=== PATIENT | male | born 1975 | race Caucasian/White ===

== ENCOUNTER 2018-11-26 11:43 | Emergency (ER) | payer OTHER ==
[~2018-11-26] VITALS: Ht 172.7 cm; Wt 93.0 kg
--- NOTE | 2018-11-26 12:13 | PHYS DOC ---
Past History Past Medical History: COPD Past Surgical History: Other Smoking: Greater than 1 pack/day Additional Smoking Information: 10/25 PPD Alcohol Use: Occasionally Drug Use: None Adult General Chief Complaint Chief Complaint: LOSS OF CONSCIOUSNESS [facility] HPI 43-year-old male presents with syncopal episode and fall. The patient states that around noon yesterday he was having a coughing fit and then passed out in the shower. He believes that he landed on the metal shower door track on his right upper arm and right ribs. He woke up on the floor and had bleeding above his right eye describes some pain on the right ribs and right upper arm. He is unsure how long he was unconscious. There was no other witness. Patient does have COPD at baseline. He is not on oxygen. He had one episode similar to this for 5 years ago or he had a coughing fit a syncopal episode. He was placed on breathing treatments for COPD at that time. He is not currently on any COPD medications. He denies fever or chills. He denies any other symptoms of illness. Review of Systems Review of Systems Constitutional: Denies fever or chills [] Eyes: Denies change in visual acuity, redness, or eye pain [] HENT: Denies nasal congestion or sore throat [] Respiratory: Denies cough or shortness of breath [] Cardiovascular: No additional information not addressed in HPI [] GI: Denies abdominal pain, nausea, vomiting, bloody stools or diarrhea [] : Denies dysuria or hematuria [] Musculoskeletal: Right upper arm abrasion and right posterior rib pain[] Integument: Denies rash or skin lesions [] Neurologic: Syncope. Denies headache, focal weakness or sensory changes [] Endocrine: Denies polyuria or polydipsia [] All other systems were reviewed and found to be within normal limits, except as documented in this note. Allergies Allergies Allergies Coded Allergies Type Severity Reaction Last Updated Verified No Known Drug Allergies 04/16/14 No Physical Exam Physical Exam Constitutional: Well developed, well nourished, no acute distress, non-toxic appearance. [] HENT: Normocephalic, atraumatic, bilateral external ears normal, oropharynx moist, no oral exudates, nose normal. [] Eyes: PERRLA, EOMI, conjunctiva normal, no discharge. 1 cm last liberation of the right eyebrow, well approximated, no bleeding.[] Neck: Normal range of motion, no tenderness, supple, no stridor. [] Cardiovascular:Heart rate regular rhythm, no murmur [] Lungs & Thorax: Bilateral breath sounds decreased but clear to auscultation [] Abdomen: Bowel sounds normal, soft, no tenderness, no masses, no pulsatile masses. [] Skin: Ecchymosis of the right upper and right posterior thorax. [] Back: Mild right-sided tenderness, no CVA tenderness. [] Extremities: No tenderness, no cyanosis, no clubbing, ROM intact, no edema. [] Neurologic: Alert and oriented X 3, normal motor function, normal sensory function, no focal deficits noted. [] Psychologic: Affect normal, judgement normal, mood normal. [] Current Patient Data Vital Signs Vital Signs Date Time Temp Pulse Resp B/P (MAP) Pulse Ox O2 Delivery O2 Flow Rate FiO2 11/26/18 11:51 98.3 88 20 100 Room Air EKG EKG Sinus rhythm, rate 60, left axis deviation, no ST elevations or depressions, widened T waves in V2, V3[] Radiology/Procedures Radiology/Procedures [] Impressions: PQRS Compliance statement: One or more of the following individualized dose reduction techniques were utilized for this examination: 1. Automated exposure control. 2. Adjustment of the mA and/or kV according to patient size. 3. Use of iterative reconstruction technique. Indication:Syncope YESTERDAY, BRUISING OVER RIGHT EYE TECHNIQUE: CT head without IV contrast COMPARISON: 09/11/2015 FINDINGS: No pathologic extra-axial or intra-axial fluid collection. The ventricles and basal cisterns are within normal limits. No acute intracranial bleed. No focal loss of chow-white differentiation. Visualized orbits within normal limits. No large scalp hematoma. No acute calvarial fracture. The paranasal sinuses and mastoid air cells are clear. IMPRESSION: No acute intracranial process. Electronically signed by: Lavell Chris DO (11/26/2018 12:24 PM) [id number] DICTATED AND SIGNED BY: LAVELL CHRIS DO DATE: 11/26/18 1222 CC: NISREEN DUBON DO; JOSE PASTOR PAC Indication: Right hip pain. Syncope yesterday TECHNIQUE: PA chest and multiple views of the right ribs COMPARISON: None FINDINGS: Heart is normal in size. Lungs are clear. No pneumothorax or pleural effusion. No acute rib fractures. IMPRESSION: No acute findings. Electronically signed by: Lavell Chris DO (11/26/2018 12:27 PM) [id number] DICTATED AND SIGNED BY: LAVELL CHRIS DO DATE: 11/26/18 1225 CC: NISREEN DUBON DO; JOSE PASTOR PAC Course & Med Decision Making Course & Med Decision Making Pertinent Labs and Imaging studies reviewed. (See chart for details) Patient's labs are unremarkable. His EKG unusual T waves, but is otherwise unremarkable. His troponin is negative. His head CT is unremarkable. I do not see an abnormality at that would lead to his syncope. It's highly possible this is vasovagal syncope due to the coughing. His rib x-rays negative for fractures. He just has contusions. He is stable for discharge at this time. [] Dragon Disclaimer Dragon Disclaimer This electronic medical record was generated, in whole or in part, using a voice recognition dictation system. Departure Departure: Impression: Primary Impression: Fall in (into) shower or empty bathtub, initial encounter Additional Impressions: Vasovagal syncope Contusion of rib on left side Disposition: 01 HOME, SELF-CARE Condition: STABLE Referrals: JOSE PASTOR PAC (PCP) Patient Instructions: Rib Contusion, Syncope, [id number] Problem Qualifiers Additional Impressions: Contusion of rib on left side Encounter type: initial encounter Qualified Codes: S20.212A - Contusion of left front wall of thorax, initial encounter NISREEN DUBON DO Nov 26, 2018 12:13
[2018-11-26 12:19] LABS: BASO # 0.1 x10^3/uL (0.0-0.2); BASO % 1 % (0-3); EOS # 0.1 x10^3/uL (0.0-0.7); EOS % 1 % (0-3); HEMOGLOBIN 18.9 g/dL (13.0-17.5); LYMPH # 2.1 x10^3/uL (1.0-4.8); LYMPH % 21 % (24-48); MEAN CORPUSCULAR HEMOGLOBIN 31 pg (25-35); MEAN CORPUSCULAR HGB CONC 34 g/dL (31-37); MEAN CORPUSCULAR VOLUME 90 fL (79-100); MONO # 0.6 x10^3/uL (0.0-1.1); MONO % 6 % (0-9); NEUT # 7.2 x10^3uL (1.8-7.7); NEUT % 71 % (31-73); PLATELET COUNT 214 x10^3/uL (140-400); RED BLOOD COUNT 6.14 x10^6/uL (4.30-5.70); RED CELL DISTRIBUTION WIDTH 13.6 % (11.5-14.5); WHITE BLOOD COUNT 10.1 x10^3/uL (4.0-11.0)
--- NOTE | 2018-11-26 12:28 | RAD ---
PQRS Compliance statement: One or more of the following individualized dose reduction techniques were utilized for this examination: 1. Automated exposure control. 2. Adjustment of the mA and/or kV according to patient size. 3. Use of iterative reconstruction technique. Indication:Syncope YESTERDAY, BRUISING OVER RIGHT EYE TECHNIQUE: CT head without IV contrast COMPARISON: 09/11/2015 FINDINGS: No pathologic extra-axial or intra-axial fluid collection. The ventricles and basal cisterns are within normal limits. No acute intracranial bleed. No focal loss of chow-white differentiation. Visualized orbits within normal limits. No large scalp hematoma. No acute calvarial fracture. The paranasal sinuses and mastoid air cells are clear. IMPRESSION: No acute intracranial process. Electronically signed by: Lavell Chris DO (11/26/2018 12:24 PM) [id number]
--- NOTE | 2018-11-26 12:31 | RAD ---
Indication: Right hip pain. Syncope yesterday TECHNIQUE: PA chest and multiple views of the right ribs COMPARISON: None FINDINGS: Heart is normal in size. Lungs are clear. No pneumothorax or pleural effusion. No acute rib fractures. IMPRESSION: No acute findings. Electronically signed by: Lavell Chris DO (11/26/2018 12:27 PM) [id number]
[2018-11-26 12:32] LABS: ALBUMIN 3.8 g/dL (3.4-5.0); CALCIUM 8.9 mg/dL (8.5-10.1); CREATININE 1.4 mg/dL (0.7-1.3); GFR 55.8; POTASSIUM 3.6 mmol/L (3.5-5.1); TOTAL PROTEIN 7.5 g/dL (6.4-8.2)
[2018-11-26 13:01] LABS: AMPHETAMINE/METHAMPHETAMINE NEG (NEG); BARBITURATES NEG (NEG); BENZODIAZEPINES NEG (NEG); CANNABINOIDS NEG (NEG); COCAINE NEG (NEG); METHADONE NEG (NEG); OPIATES NEG (NEG); PHENCYCLIDINE NEG (NEG)
[2018-11-26 13:07] LABS: BILIRUBIN,URINE NEG (NEG); CLARITY,URINE CLEAR; COLOR,URINE AMBER; GLUCOSE,URINE NEG (NEG)
[2018-11-26 13:08] LABS: BACTERIA,URINE 0 /HPF (0-FEW); NITRITE,URINE NEG (NEG); RBC,URINE RARE /HPF (0-2); SQUAMOUS EPITHELIAL CELL,UR OCC /LPF; UROBILINOGEN,URINE 1 mg/dL (0.2 mg/dL); WBC,URINE RARE /HPF (0-4)
[2018-11-26 13:30] VITALS: BP 115/76
--- NOTE | 2018-11-28 11:41 | EKG ---
[address] [id number] Test Date: 2018-11-26 Test Time: 11:56:29 Pat Name: TETE SANON Department: Room: Gender: M [employer] Al[employer]ic: BRIGITTE : [id number] Requested By: NISREEN DUBON Order Number: [id number] Reading MD: Forrest Rodriguez MD Measurements Intervals [place] Rate: 60 P: [place]: QRS: -41 QRSD: 90 T: 29 QT: 392 QTc: 396 Interpretive Statements SR LAD NON-SPECIFIC ST/T CHANGES Electronically Signed On 12-04-2018 9:43:09 PARI MUTUEL CLERK by Forrest Rodriguez MD
== END 2018-11-26 13:40 | disposition home or self-care (01) ==
LOC: ER 11:43
DX: S20.212A Contusion of left front wall of thorax, initial encounter (principal); R55 Syncope and collapse; S01.111A Laceration without foreign body of right eyelid and periocular area, initial encounter; J44.9 Chronic obstructive pulmonary disease, unspecified; F17.200 Nicotine dependence, unspecified, uncomplicated; W18.2XXA Fall in (into) shower or empty bathtub, initial encounter; Y93.89 Activity, other specified; Y92.89 Other specified places as the place of occurrence of the external cause; Y99.8 Other external cause status
CPT/HCPCS: 36415; 70450; 71101; 80053; 80307; 81001; 84484; 85025; 99284